=== PATIENT | female | born 1960 | race Caucasian/White ===

== ENCOUNTER 2017-10-30 05:03 | Day surgery (SDC) | payer MEDICARE, MEDICAID ==
[2017-10-30] VITALS (8 sets, daily range): BP systolic 108–134; BP diastolic 69–87
[~2017-10-30 05:03] MED LIST: ALPR-624 PO; EFF25T PO; HUMERA SQ; HYDR-4353 PO; NIA500ERT PO
[2017-10-30] MEDS ORDERED: LORazepam 0.5 MG tablet PO PRN (05:30)
[2017-10-30] MEDS ORDERED: diphenhydrAMINE 25mg capsule PO PRN (05:30)
[2017-10-30] MEDS ORDERED: normal saline 1000ml 1,000 ML IV SCH (05:30)
[2017-10-30] MEDS ORDERED: LIDOcaine/PRILOcaine 5gm cream TP PRN (05:35)
[2017-10-30] MEDS ORDERED: ASPI-1265 PO (06:02)
[2017-10-30] MEDS ORDERED: EVOL140P IJ (06:02)
[2017-10-30] MEDS ORDERED: LOVA20TA2 PO (06:02)
[2017-10-30] MEDS ORDERED: ALPR-624 PO (06:02)
[2017-10-30] MEDS ORDERED: NITR0.4T51 SL (06:02)
[2017-10-30] MEDS ORDERED: IBUP-1984 PO (06:02)
[2017-10-30] MEDS ORDERED: lidocaine 1%/epinephrine 1:100,000 injection 50ml vial ONE (06:13)
[2017-10-30] MEDS ORDERED: iohexol 350MG/ML 100ml bottle IV ONE (06:14)
[2017-10-30] MEDS ORDERED: diphenhydrAMINE 50 mg/ml inj ONE (06:29)
[2017-10-30] MEDS ORDERED: midazolam 2 mg/2 ml injection ONE ×2 (06:29→06:42)
[2017-10-30] MEDS ORDERED: fentaNYL/PF 50MCG/1 ML 2ML syringe ONE (06:29)
[2017-10-30] MEDS ORDERED: verapamil 2.5 mg/ml inj IV ONE (06:31)
[2017-10-30] MEDS ORDERED: nitroGLYCERIN-Tridil 50MG/D5W 250 ML IV ONE (06:31)
[2017-10-30] MEDS ORDERED: heparin 1,000unit/ml 10ml vial 10 ML ONE (06:32)
[2017-10-30] MEDS ORDERED: OXAZEpam 15mg capsule PO PRN (07:35)
[2017-10-30] MEDS ORDERED: ondansetron/PF 4mg/2ml inj IV PRN (07:35)
[2017-10-30] MEDS ORDERED: proCHLORperazine 10 MG/2 ml inj IV PRN (07:35)
[2017-10-30] MEDS ORDERED: HYDROcodone/acetaminophen 10/325mg tab PO ONE (08:30)
== END 2017-10-30 10:05 | disposition home or self-care (01) ==
LOC: SSTAY O 05:03
PROVIDERS: ATTEND Internal Medicine Interventional Cardiology
DX: I25.10 Atherosclerotic heart disease of native coronary artery without angina pectoris (principal); I65.23 Occlusion and stenosis of bilateral carotid arteries; L40.50 Arthropathic psoriasis, unspecified; F17.210 Nicotine dependence, cigarettes, uncomplicated; K21.9 Gastro-esophageal reflux disease without esophagitis; E78.5 Hyperlipidemia, unspecified; F41.8 Other specified anxiety disorders; Z98.51 Tubal ligation status; Z90.49 Acquired absence of other specified parts of digestive tract; Z79.82 Long term (current) use of aspirin; Z79.1 Long term (current) use of non-steroidal anti-inflammatories (NSAID); Z79.899 Other long term (current) drug therapy; Z98.890 Other specified postprocedural states; Z88.8 Allergy status to other drugs, medicaments and biological substances
CPT/HCPCS: 93005; 93458; 99152; 99153; A6257; C1769; J1200; J1644; J2250; J3010; J3490; J7030; Q0163; Q9967; A4620